=== PATIENT | female | born 1935 | race Caucasian/White ===

== ENCOUNTER → 2017-10-11 10:45 | Outpatient (CLI) | payer MEDICARE, SELFPAY ==
--- NOTE | 2017-10-20 16:13 | HOLTER_ITS ---
Date of dictation: October 19, 2017 Date of recording: October 11, 2017 Date of analysis: October 13, 2017 Referred by: Yoselin Marrero N.P. Indication: Irregular heartbeat. Findings: 1. Baseline sinus rhythm, minute heart rate 43-116 bpm, average 71 bpm. 2. Frequent PACs (4025/2 days), 2% of total beats, 10 SVT runs, maximally 9 beats, maximally 168 bpm. No atrial fibrillation. 3. Frequent PVC (5710/2 days), 2.9% of total beats, 21 couplets, no VT. 4. Nocturnal bradycardia down to 37 bpm, occasional dropped beats from blocked PAC, no significant pauses. 5. Symptoms: Palpitations x3, once with sinus tachycardia, 101 bpm, once with sinus rhythm, 91 bpm, once with sinus rhythm and single PVC, 57 bpm; heavy chest x4 minutes with sinus rhythm and single PVC, 80 bpm; shortness of breath and palpitations x1.5 hours with sinus rhythm, 78 bpm; fatigue with sinus rhythm, 65 bpm; heavy feeling chest/lightheaded, sinus rhythm, 93 bpm.
== END ==
PROVIDERS: Visit Provider Nurse Practitioner
DX: I49.9 Cardiac arrhythmia, unspecified (principal); I49.3 Ventricular premature depolarization; R00.1 Bradycardia, unspecified; I49.1 Atrial premature depolarization
CPT/HCPCS: 93225

== ENCOUNTER 2017-10-14 07:56 | Outpatient (CLI) | payer MEDICARE, SELFPAY | END 2017-10-14 07:57 | DX: I49.9 Cardiac arrhythmia, unspecified (principal); I49.3 Ventricular premature depolarization; I49.1 Atrial premature depolarization; R00.1 Bradycardia, unspecified | CPT/HCPCS: 93226 ==

== ENCOUNTER 2017-10-19 19:06 | Outpatient (CLI) | payer MEDICARE, SELFPAY | END 2017-10-19 19:26 | PROVIDERS: Referring Provider Nurse Practitioner; Visit Provider Internal Medicine Cardiovascular Disease | DX: I49.9 Cardiac arrhythmia, unspecified (principal); I49.3 Ventricular premature depolarization; I49.1 Atrial premature depolarization; R00.1 Bradycardia, unspecified | CPT/HCPCS: 93227 ==

== ENCOUNTER 2017-11-19 07:23 | Emergency (ER) | payer MEDICARE, SELFPAY ==
[2017-11-19 07:29] VITALS: BP 157/85; PULSE 77; RESP 16; TEMP 36.3; O2SAT 99
--- NOTE | 2017-11-19 08:53 | DI.RAD_ITS ---
SYMPTOMS/DIAGNOSIS: COUGH, ? PNEUMONIA CHEST X-RAY, FRONTAL AND LATERAL VIEWS: Comparison is 10/19/14. The heart size and pulmonary vasculature are stable. The patient has an aortic valve replacement. The lungs are free of infiltrates. The lungs are hyperexpanded, suggesting underlying COPD. No effusions or pneumothoraces are identified. Degenerative changes are seen in the spine. Sternal wires are in place. IMPRESSION: COPD. No acute pulmonary process.
--- NOTE | 2017-11-19 09:36 | ED.GENADUL_ITS ---
Discharge Plan Disposition Patient Disposition: HOME Condition: Stable Discharge Details Chief Complaint: RespSymp Clinical Impression: Bronchitis Primary Care Provider: Cristine Lee ED Provider: Katty Aleman Home Meds and New Rx's Prescriptions: New prednisone 50 mg tablet 50 mg PO DAILY Qty: 5 RF: 0 doxycycline monohydrate 100 mg capsule 100 mg PO BID 5 Days Qty: 10 RF: 0 benzonatate [Tessalon Perles] 100 mg capsule 100 mg PO TID PRN (Reason: cough) Qty: 10 RF: 0 Continue levothyroxine [Synthroid] 75 MCG tablet 75 mcg PO DAILY RF: 0 sennosides [Senokot] 1 TAB tablet 1 tab PO DAILY RF: 0 aspirin [Aspir-81] 81 MG tablet,delayed release (DR/EC) 81 mg PO DAILY RF: 0 docusate sodium [Colace] 100 MG capsule 100 mg PO BID RF: 0 cyclosporine [Restasis] 0.4 ML dropperette 0.4 ml OU BID RF: 0 flecainide 50 mg Tablet 1 tab PO BID RF: 0 losartan 100 mg Tablet 100 mg PO DAILY RF: 0 Discharge Instructions Instructions: Acute Bronchitis (ED) Additional Instructions: Drink plenty fluids and get plenty of rest. Take the steroids until finished. Take the cough medicine as needed and directed. If your symptoms do not improve or worsen over the next 2 days, start the antibiotics. Follow-up with your primary care doctor in 1 week for reevaluation. Return to the emergency department with any worsening or new concerning symptoms. Discharge Data Discharge Physician: Katty Aleman Medical Decision Making 81-year-old female with atrial fibrillation, hypothyroidism and presents for cold symptoms for 1 week. Mainly complaining of dry cough and chest pressure that occurs with only with coughing. Hypertensive on arrival otherwise vitals within normal limits. Afebrile. Patient appears nontoxic and in no acute distress. She is easily ambulatory around room and ED and is in no respiratory distress. She is speaking in full sentences. Her lungs no very minimal rhonchi and wheezing. Considering patient's age, history and complaint, EKG done and notes a rate of 58, no acute ST elevation or depression. There is T wave inversion in V1 and V2 which is been seen in previous. QTc 422. QRS 98. Differential Diagnosis includes URI, bronchitis, pneumonia. Will send for chest x-ray and give a dose of prednisone. She denies any shortness of breath so we will hold on albuterol treatment at this time. 1125 -- Chest x-ray done which notes hyperexpanded lungs consistent with COPD but no focal consolidation. Patient denies any previous history of smoking. Patient states she feels better and is requesting to go home. She is declining on albuterol neb treatment here and an inhaler at home. We will send him with a prescription for prednisone and cough medicine. Patient instructed to take these in the next 2 days and if she has any relief she can hold on the antibiotics. If she develops fever or any worsening symptoms, she can start the antibiotic prescription. She is instructed to follow-up with primary care doctor in 1 week for reevaluation and return to the ER if worse. HPI General Mode of arrival: ambulatory . Date/Time Provider Initiated Documentation: 11/19/17 07:58 . Limitations to Documentation: no limitations . Information obtained by: patient . HPI Narrative: Pt is a 81yo F with a history of atrial fibrillation, hypertension, hypothyroidism who presents with cold symptoms for the past week. She is complaining of sore throat, runny nose, dry cough. She also complains of anterior chest pressure that occurs only with coughing. She states she took [id number] Coricidin without relief. She denies shortness of breath. She states she has been eating and drinking normally. She denies known fever, recent hospital admission, recent antibiotics or steroids. Past medical history: Atrial fibrillation, hypertension, hypothyroidism Surgical history: Aortic valve replacement in February 2017, knee surgery Social history: Denies tobacco, alcohol, drugs Medications: See list Allergies: Penicillin, IV dye, shellfish Related Data Home Medications Medication Instructions Recorded Confirmed levothyroxine [Synthroid] 75 mcg PO DAILY 10/19/14 11/19/17 aspirin [Aspir-81] 81 mg PO DAILY 07/16/17 11/19/17 cyclosporine [Restasis] 0.4 ml OU BID 07/16/17 11/19/17 docusate sodium [Colace] 100 mg PO BID 07/16/17 11/19/17 sennosides [Senokot] 1 tab PO DAILY 07/16/17 11/19/17 benzonatate [Tessalon Perles] 100 mg PO TID PRN #10 cap 11/19/17 doxycycline monohydrate 100 mg PO BID 5 Days #10 cap 11/19/17 flecainide 1 tab PO BID 11/19/17 11/19/17 losartan 100 mg PO DAILY 11/19/17 11/19/17 prednisone 50 mg PO DAILY #5 tab 11/19/17 Previous Rx's Medication Instructions Recorded benzonatate [Tessalon Perles] 100 mg PO TID PRN #10 cap 11/19/17 doxycycline monohydrate 100 mg PO BID 5 Days #10 cap 11/19/17 prednisone 50 mg PO DAILY #5 tab 11/19/17 Allergies Allergy/AdvReac Type Severity Reaction Status Date / Time Penicillins Allergy Severe Hives Unverified 07/16/17 16:31 Iodinated Contrast- Oral and Allergy Unverified 11/19/17 07:36 IV Dye monosodium glutamate Allergy Unverified 11/19/17 07:36 shellfish derived Allergy Unverified 11/19/17 07:36 General Stated Complaint: RespSymp JAE: 4 Review of Systems Review of Systems All systems reviewed & are unremarkable except as noted in HPI and below PFSH Medical History Aortic stenosis Colitis Disorder of thyroid gland HTN (hypertension) Mitral regurgitation Social History Smoking/Tobacco Use Status: Never Exam Const General: cooperative and healthy appearing Orientation: alert and awake HENMO Head: normal to inspection Ears: hearing grossly normal bilaterally, external ears normal and TM's normal bilaterally General nose exam: external nose normal Face and sinus: normal facial exam Mouth: oral mucosae normal Teeth and gingiva: dentition normal Throat: posterior oropharynx normal Eyes General: appearance normal, both eyes and all related structures Eyelids: eyelids normal Pupils: PERRL EOM: EOM intact bilaterally Neck Neck: normal visual inspection Lymphatic: no lymphadenopathy noted Chest Chest: normal inspection of the chest and tenderness (mild anterior, no ecchymoses or rash) Resp Effort & Inspection: normal respiratory effort and able to speak in complete sentences Auscultation: rhonchi (minimal and scattered) and wheezes (minimal and scattered ) Cardio Rate: regular rate Rhythm: regular rhythm GI Inspection: normal to inspection Palpation: soft, not firm, no guarding, no hepatosplenomegaly, no masses and nontender Auscultation: normal bowel sounds Back/Spine/Pelvis Back: no CVA tenderness Skin General skin exam: no rashes or lesions noted Neuro General: alert and awake Cognition: normal cognition Speech: speech normal Gait: normal gait Motor: muscle tone normal throughout Sensory Exam: no sensory deficits noted Extrem General: normal to inspection, full ROM, normal capillary refill and no edema Psych Appearance: grossly normal Mental Status: mental status grossly normal Speech and Movement: speech and movement normal Affect: normal affect Thought Process: normal Course Vital Signs Temperature 97.3 F L 11/19/17 07:29 Pulse 77 11/19/17 07:29 Respiratory Rate 16 11/19/17 07:29 Blood Pressure 157/85 H 11/19/17 07:29 Pulse Oximetry 99 11/19/17 07:29 Temperature 97.3 F L 11/19/17 07:29 Temperature Source Temporal Artery Scan 11/19/17 07:29 Pulse 77 11/19/17 07:29 Respiratory Rate 16 11/19/17 07:29 Respiratory Effort 11/19/17 07:34 Respiratory Depth Normal 11/19/17 07:34 Blood Pressure 157/85 H 11/19/17 07:29 Blood Pressure Position Sitting 11/19/17 07:29 Pulse Oximetry 99 11/19/17 07:29 Oxygen Delivery Method Room Air 11/19/17 07:29 Oxygen Flow Rate 0 11/19/17 07:29 Pain Level 0 11/19/17 07:29
--- NOTE | 2017-11-19 11:03 | DI.VRAD_ITS ---
EXAM: XR Chest, 2 Views EXAM DATE/TIME: 11/19/2017 8:54 AM CLINICAL HISTORY: 81 years old, female; Signs and symptoms; Cough; Patient HX: Rule out pneumonia TECHNIQUE: XR of the chest, 2 views. COMPARISON: CR CHEST 2 VIEWS PA,LAT 10/19/2014 12:59 AM FINDINGS: Lungs: Hyperexpanded lung palencia consistent with COPD . No focal consolidation Pleural space: Unremarkable. No pleural effusion. No pneumothorax. Heart/Mediastinum: Status post cardiac valve replacement Bones/joints: Status post median sternotomy Osseous structures are stable IMPRESSION: Hyperexpanded lung palencia consistent with COPD Dictated and Authenticated by: Avery Urbina MD. Ordering:SHAWN RODRIGUEZ MD
[2017-11-19 11:20] VITALS: BP 156/81; PULSE 64; RESP 17; TEMP 36.5; O2SAT 98
== END 2017-11-19 11:55 | disposition home or self-care (01) ==
PROVIDERS: Emergency Provider Physician Assistant
DX: J20.9 Acute bronchitis, unspecified (principal); R07.89 Other chest pain; I10 Essential (primary) hypertension
CPT/HCPCS: 93005; 99284; 71046; 93010; 99285

== ENCOUNTER 2017-11-28 15:58 | Emergency (ER) | payer MEDICARE, SELFPAY ==
[2017-11-28 16:02] VITALS: BP 199/96; PULSE 84; RESP 16; TEMP 36.7; O2SAT 98
--- NOTE | 2017-11-28 16:31 | DI.CT_ITS ---
SYMPTOMS/DIAGNOSIS: BILATERAL LOWER ABDOMINAL PAIN, CONCERN FOR COLITIS CT EXAMINATION OF THE ABDOMEN AND PELVIS: The study was carried out according to the usual protocol without contrast enhancement. The liver is unremarkable. The gallbladder is intact. There are no gallstones. The pancreas, and spleen, and adrenals and kidneys are unremarkable. Note is made of numerous diverticula in the sigmoid colon. There is no diverticulitis. Wall thickening of the distal aspect of the sigmoid colon and rectum with mild inflammation within the surrounding fat would be consistent with proctocolitis. There is no evidence of obstruction. There are no findings to suggest an acute appendix. The bladder is unremarkable. The reproductive organs as visualized are unremarkable. There is no evidence of free air or free fluid in the intraperitoneal space. Note is made of degenerative changes and scoliosis throughout the visualized thoracic and lumbar spine. There is no acute fracture or dislocation. The soft tissues are unremarkable. There is no aortic aneurysm. There is no lymphadenopathy. SUMMARY: Findings consistent with proctocolitis.
[2017-11-28 17:15] LABS: Abs Immature Grans 0.03 k/cumm (0.0-0.09); Absolute Basophil Count 0.05 k/cumm (0.0-0.2); Absolute Eosinophil Count 0.07 k/cumm (0.0-0.7); Absolute Lymphocyte Count 1.72 k/cumm (1.2-3.4); Absolute Monocyte Count 0.68 k/cumm (0.11-0.7); Absolute Neutrophil Count 9.46 k/cumm (1.2-6.7); Basophils % 0.4; Eosinophils % 0.6; HCT 41.5 % (36.0-46.0); HGB 14.1 g/dL (12.0-15.5); Immature Grans % 0.2; Lymphocytes % 14.3; Mean Corpuscular Hemoglobin 31.8 pg (27.0-33.0); Mean Corpuscular Volume 93.7 fL (80-95); Mean Platelet Volume 9.4 fL (8.0-11.0); Monocytes % 5.7; Neutrophils % 78.8; Platelet Count 247 x1000/uL (130-400); RBC 4.43 m/cumm (4.00-5.20); RBC Distribution Width 12.5 % (11.7-14.6); White Blood Cell Count 12.01 k/cumm (4.4-10.8)
[2017-11-28 17:27] LABS: ALT 25 U/L (12-78); AST 23 U/L (15-37); Alkaline Phosphatase 47 U/L (46-116); BUN 21 mg/dL (7-18); Bilirubin, Total 0.5 mg/dL (0.2-1.0); CREATININE 0.69 mg/dL (0.55-1.02); Calcium 9.3 mg/dL (8.5-10.1); Chloride 100 mmol/L (98-107); Glucose 101 mg/dL (70-100); Lipase 161 U/L (73-393); Sodium 135 mmol/L (136-145); Total Protein 7.8 g/dL (6.4-8.2)
[2017-11-28 17:48] LABS: Bilirubin Negative (Negative); Blood Trace-intact (Negative); Clarity Clear; Glucose Negative (Negative); Ketones Negative (Negative); Leukocyte Esterase Negative (Negative); Nitrite Negative (Negative); Urobilinogen 0.2 EU/dL (Up TO 0.2)
[2017-11-28 17:56] LABS: RBC 0-2 (0-2); WBC Negative HPF (0-5)
[2017-11-28 17:57] LABS: Bacteria Rare HPF (Negative); C & S Indicated? No; Casts Negative LPF (Negative); Crystals Negative HPF (Negative); Epithelial Cells Rare HPF (Negative); Mucus Trace (Negative); Other Cells Negative (Negative)
--- NOTE | 2017-11-28 18:24 | DI.VRAD_ITS ---
EXAM: CT Abdomen and Pelvis Without Intravenous Contrast CLINICAL HISTORY: 81 years old, female; Pain; Abdominal pain; Localized; Lower; Patient HX: Bilateral lower abdominal pain; Additional info: Concern for colitis TECHNIQUE: Axial computed tomography images of the abdomen and pelvis without intravenous contrast. Coronal and sagittal reformatted images were created and reviewed. COMPARISON: No relevant prior studies available. FINDINGS: Lung bases: Dependent changes within the lung bases. ABDOMEN: Liver: Unremarkable. Gallbladder and bile ducts: Unremarkable. No calcified stones. No ductal dilation. Pancreas: Unremarkable. No ductal dilation. Spleen: Unremarkable. No splenomegaly. Adrenals: Unremarkable. No mass. Kidneys and ureters: Unremarkable. No obstructing stones. No hydronephrosis. Stomach and bowel: Numerous diverticuli of the sigmoid colon. No diverticulitis. Wall thickening of the distal aspect of the sigmoid colon and rectum with mild inflammation within the surrounding fat consistent with proctocolitis. No obstruction. PELVIS: Appendix: No findings to suggest acute appendicitis. Bladder: Unremarkable. No stones. Reproductive: Unremarkable as visualized. ABDOMEN and PELVIS: Intraperitoneal space: Unremarkable. No free air. No significant fluid collection. Bones/joints: Degenerative spondylosis and scoliosis throughout the visualized thoracic and lumbar spine. No acute fracture. No dislocation. Soft tissues: Unremarkable. Vasculature: Unremarkable. No abdominal aortic aneurysm. Lymph nodes: Unremarkable. No enlarged lymph nodes. IMPRESSION: Proctocolitis. Dictated and Authenticated by: Andrey Jones MD. Ordering:EDUARD PATEL MD
[2017-11-28] MEDS: Normal Saline 1,000 ML 1000 ML IV (18:38)
[2017-11-28 18:50] VITALS: BP 190/86; PULSE 61; RESP 17; TEMP 36.4; O2SAT 96
--- NOTE | 2017-11-28 18:57 | ED.GENADUL_ITS ---
Discharge Plan Disposition Patient Disposition: HOME Condition: Good Discharge Details Chief Complaint: Abd Prob Clinical Impression: Proctocolitis Primary Care Provider: Cristine Lee ED Provider: Christopher Vivas Home Meds and New Rx's Prescriptions: New metronidazole [Flagyl] 500 mg tablet 500 mg PO TID 14 Days Qty: 42 RF: 0 doxycycline hyclate 100 mg capsule 100 mg PO BID 14 Days Qty: 28 RF: 0 hydrocortisone acetate [Anusol-HC] 25 mg suppository 25 mg MT BID 14 Days RF: 0 No Action levothyroxine [Synthroid] 75 MCG tablet 75 mcg PO DAILY RF: 0 sennosides [Senokot] 1 TAB tablet 1 tab PO DAILY RF: 0 aspirin [Aspir-81] 81 MG tablet,delayed release (DR/EC) 81 mg PO DAILY RF: 0 docusate sodium [Colace] 100 MG capsule 100 mg PO BID RF: 0 cyclosporine [Restasis] 0.4 ML dropperette 0.4 ml OU BID RF: 0 flecainide 50 mg Tablet 1 tab PO BID RF: 0 losartan 100 mg Tablet 100 mg PO DAILY RF: 0 Discharge Instructions Instructions: Proctitis (ED) Additional Instructions: Please take both antibiotics as directed. Please take the suppository as directed. If you notice any worsening of your symptoms, or any new symptoms such as vomiting, diarrhea, fever, chills, shortness of breath, chest pain, numbness, weakness, or fainting , please return immediately to the emergency department for reevaluation. Please follow up with your primary care provider as soon as possible for reassessment and reevaluation. As always, it was a pleasure participating in your medical care today. Referrals: Cristine Lee MD [Primary Care Provider] - Discharge Data Discharge Date/Time-TO BE ENTERED AT DEPARTURE: 11/28/17 19:12 Medical Decision Making This is a pleasant 81-year-old female who presents for evaluation of lower abdominal pain, and a sensation of rectal fullness. Physical exam demonstrates mild tenderness in the lower abdomen. No guarding or rebound, no signs of an acute surgical abdomen. Because of the history of diverticulitis, differential was certainly high for diverticulitis. No red flags of bleeding, or immunomodulators. She is not on a blood thinners. Laboratory workup was ordered and demonstrates mildly elevated white count at 12, normal platelets, normal renal function, signs of mild dehydration with an elevated BUN/ creatinine ratio. Urinalysis is negative for any signs of significant infection. Patient does not want anything for pain control at this time. CT scan was ordered and does demonstrate evidence of proctocolitis per radiology impression. No signs of significant diverticulitis, intra-abdominal abscess, or other significant abnormality. Patient's pain is well controlled. She has no history of autoimmune colitis, and I feel this is most likely infectious in etiology. 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 She is also on flecainide with QT prolongation components for her palpitations and previous arrhythmias. This does bring about a dilemma. The patient can have Flagyl without any significant complications however Cipro, Levaquin, and Augmentin are certainly contraindicated secondary to the QT prolongation component and the penicillin allergy component. Because of her anaphylaxis, I do not feel that a cephalosporin would be humphries. Although this does notably limit her gram-negative coverage I feel that the best course of antibiotic use at this time would be doxycycline to avoid any QT component as well as any penicillin-based allergy. Because this is not ideal therapy we will have the patient follow-up promptly with her primary care provider for prompt reassessment. I had a very long discussion with the patient and her family member who is at bedside regarding red flags for which to come back for including a very low threshold for any worsening of her symptoms. We will give the patient Anusol in addition to these other medications. I have extensively reviewed the treatment plan and discharge instructions with the patient and their family. I have addressed all patient concerns at this time. The patient and family was made aware of what symptoms to monitor for that would warrant a return to the emergency department. Discussed the plan with the patient and family, they demonstrate verbal understanding and agreement with our assessment and plan at this time. Impression: Proctocolitis HPI General Date/Time Provider Initiated Documentation: 11/28/17 16:25 . HPI Narrative: This is a pleasant 81-year-old female with a past medical history of an aortic valve replacement that is a cow valve, palpitations for which she takes flecainide, daily aspirin use, hypertension, daily aspirin use and a history of diverticulosis and diverticulitis. She presents today with lower abdominal pain, symptoms of rectal fullness, increased urge to defecate. She denies any pain with defecation, burning or searing sensation. Her symptoms are improved whenever she has a bowel movement. She has had regular and continued gas. She denies any vomiting. She denies any dysuria, hematuria, increase in urinary frequency. She denies any upper abdominal pain. She denies any hematochezia, bright red blood per rectum, melena, or acholic stool. She denies any previous abdominal surgery. She denies any significant blood thinners or immunomodulators. She has no other complaints at this time. She denies any pertinent family history. Related Data Home Medications Medication Instructions Recorded Confirmed levothyroxine [Synthroid] 75 mcg PO DAILY 10/19/14 11/28/17 aspirin [Aspir-81] 81 mg PO DAILY 07/16/17 11/28/17 cyclosporine [Restasis] 0.4 ml OU BID 07/16/17 11/28/17 docusate sodium [Colace] 100 mg PO BID 07/16/17 11/28/17 sennosides [Senokot] 1 tab PO DAILY 07/16/17 11/28/17 flecainide 1 tab PO BID 11/19/17 11/28/17 losartan 100 mg PO DAILY 11/19/17 11/28/17 doxycycline hyclate 100 mg PO BID 14 Days #28 cap 11/28/17 hydrocortisone acetate [Anusol-HC] 25 mg MT BID 14 Days each 11/28/17 metronidazole [Flagyl] 500 mg PO TID 14 Days #42 tab 11/28/17 Previous Rx's Medication Instructions Recorded doxycycline hyclate 100 mg PO BID 14 Days #28 cap 11/28/17 hydrocortisone acetate [Anusol-HC] 25 mg MT BID 14 Days each 11/28/17 metronidazole [Flagyl] 500 mg PO TID 14 Days #42 tab 11/28/17 Allergies Allergy/AdvReac Type Severity Reaction Status Date / Time Penicillins Allergy Severe Hives Unverified 07/16/17 16:31 Iodinated Contrast- Oral and Allergy Unverified 11/28/17 16:08 IV Dye [Contrast] monosodium glutamate Allergy Unverified 11/19/17 07:36 shellfish derived Allergy Unverified 11/19/17 07:36 General Stated Complaint: Abd Prob JAE: 3 Review of Systems Review of Systems All systems reviewed & are unremarkable except as noted in HPI and below Exam Narrative Exam Narrative: 1.Const: Well-nourished, Well-developed, appearing stated age 2.Eyes: PERRL, no conjunctival injection, and symmetrical lids. 3.ENT: Atraumatic external nose and ears. Moist MM. Neck: Symmetric, trachea midline, No thyromegaly. 4.CVS: +S1/S2, No murmurs or gallops. Peripheral pulses 2+ and equal in all extremities. Brisk capillary refill in all extremities. 5.RESP: Unlabored respiratory effort. Clear to auscultation bilaterally. No wheezes rales or rhonchi 6.GI: Soft,Nondistended, No hepatosplenomegaly. No guarding or rebound. Mild tenderness on palpation of the lower abdomen. Mild pain at McBurney's point. Negative Best sign. No significant pain on rectal exam. No evidence of severe rectal prolapse or bleeding 7.MSK: Normocephalic/Atraumatic, Extremities w/o deformity or ttp No cyanosis or clubbing, Normal movement of all extremities 8.Skin: Warm, Dry. No rashes or lesions. 9.Neuro: employment services director II-XII grossly intact. Sensation grossly intact, no focal neurologic deficits. 10.Psych: (AAO) x3. Appropriate mood and affect Course Vital Signs Temperature 36.7 C 11/28/17 16:02 Pulse 84 11/28/17 16:02 Respiratory Rate 16 11/28/17 16:02 Blood Pressure 199/96 H 11/28/17 16:02 Pulse Oximetry 98 11/28/17 16:02 Temperature 36.4 C L 11/28/17 18:50 Temperature Source Temporal Artery Scan 11/28/17 18:50 Pulse 61 11/28/17 18:50 Respiratory Rate 17 11/28/17 18:50 Respiratory Effort 11/28/17 16:06 Blood Pressure 190/86 H 11/28/17 18:50 Blood Pressure Position Sitting 11/28/17 16:02 Pulse Oximetry 96 11/28/17 18:50 Oxygen Delivery Method Room Air 11/28/17 18:50 Oxygen Flow Rate 0 11/28/17 18:50 Pain Level 0 11/28/17 18:50 Lab/Test Results Lab/Test Results: Laboratory Tests Range/Units 11/28/17 11/28/17 11/28/17 17:00 17:05 17:05 WBC (4.4-10.8) k/cumm 12.01 H RBC (4.00-5.20) m/cumm 4.43 Hgb (12.0-15.5) g/dL 14.1 Hct (36.0-46.0) % 41.5 MCV (80-95) fL 93.7 MCH (27.0-33.0) pg 31.8 MCHC (32.0-36.0) g/dL 34.0 RDW (11.7-14.6) % 12.5 Plt Count (130-400) x1000/uL 247 MPV (8.0-11.0) fL 9.4 Immature Gran % 0.2 Neutrophils % 78.8 Lymphocytes % 14.3 Monocytes % 5.7 Eosinophils % 0.6 Basophils % 0.4 Absolute Neutrophils (1.2-6.7) k/cumm 9.46 H Absolute Lymphocytes (1.2-3.4) k/cumm 1.72 Absolute Monocytes (0.11-0.7) k/cumm 0.68 Absolute Eosinophils (0.0-0.7) k/cumm 0.07 Absolute Basophils (0.0-0.2) k/cumm 0.05 Sodium (136-145) mmol/L 135 L Potassium (3.5-5.1) mmol/L 4.0 Chloride (98-107) mmol/L 100 Carbon Dioxide (21.0-32.0) mmol/L 25.0 Anion Gap (3-11) mmol/L 10.0 BUN (7-18) mg/dL 21 H Creatinine (0.55-1.02) mg/dL 0.69 Estimated GFR/1.73 m2 (mL/min/1.73m2) >= 60.00 Glucose (70-100) mg/dL 101 H Calcium (8.5-10.1) mg/dL 9.3 Total Bilirubin (0.2-1.0) mg/dL 0.5 AST (15-37) U/L 23 ALT (12-78) U/L 25 Alkaline Phosphatase (46-116) U/L 47 Total Protein (6.4-8.2) g/dL 7.8 Albumin (3.4-5.0) g/dL 4.0 Lipase (73-393) U/L 161 Urine Color (Yellow) Yellow Urine Clarity Clear Urine pH (5-8) 6.0 Ur Specific [place] (1.005-1.025) 1.020 Urine Protein (Negative) mg/dL Negative Urine Ketones (Negative) mg/dL Negative Urine Blood (Negative) Trace-intact H Urine Nitrite (Negative) Negative Urine Bilirubin (Negative) Negative Urine Urobilinogen (Up TO 0.2) EU/dL 0.2 Ur Leukocyte Esterase (Negative) Negative Urine RBC (0-2) 0-2 Urine WBC (0-5) HPF Negative Ur Epithelial Cells (Negative) HPF Rare Urine Crystals (Negative) HPF Negative Urine Bacteria (Negative) HPF Rare Urine Casts (Negative) LPF Negative Urine Mucus (Negative) Trace Urine Other (Negative) Negative Ur Culture Indicated? No Urine Glucose (Negative) mg/dL Negative
[2017-11-28] MEDS: Doxycycline Hyclate 100 MG CAP PO (19:02)
== END 2017-11-28 19:12 | disposition home or self-care (01) ==
PROVIDERS: Emergency Provider Student in an Organized Health Care Education/Training Program
DX: K63.89 Other specified diseases of intestine (principal); I10 Essential (primary) hypertension
CPT/HCPCS: 36415; 80053; 83690; 99284; 74176; 81003; 81015; 85025; 99285